=== PATIENT | male | born 1995 | race African-American/Black ===

== ENCOUNTER 2016-05-12 22:51 | Emergency (ER) | payer OTHER ==
--- NOTE | 2016-05-12 23:41 | EDDOCDS ---
Physician Documentation [facility] Name: Javier Kimbrough Age: 21 yrs Sex: Male : 1995 Arrival Date: 05/12/2016 Time: 22:51 Bed Triage 2 Private MD: Fela Wang [facility] Disposition: 05/12/16 23:33 Discharged to Home/Self Care. Impression: Pain in left shoulder. - Condition is Stable. - Discharge Instructions: Shoulder Pain, [id number]. - Medication Reconciliation, Local Pharmacy Hours form. - Follow up: Fela Wang [facility]; When: Tomorrow; Reason: Further diagnostic work-up, Recheck today's complaints, Continuance of care. - Problem is new. - Symptoms are unchanged. Historical: - Allergies: no known allergies; - Home Meds: 1. none - PMHx: none; - PSHx: none; - Social history: Smoking status: Patient states was never smoker of tobacco. Patient/guardian denies using alcohol, street drugs, No barriers to communication noted, The patient speaks fluent Nigerien, Speaks appropriately for age. - Family history: Not pertinent. - : The pt / caregiver states he / she is not on anticoagulants. Home medication list is obtained from the patient. - Exposure Risk Screening:: None identified. Vital Signs: 05/12 22:52 BP 136 / 65 RA Sitting (auto/lg); Pulse 84; Resp 16; Temp 97.5(O); Pulse Ox 98% on R/A; rs6 Weight 81.65 kg / 180.01 lbs (R); Height 6 ft. 0 in. (182.88 cm) (R); Pain 9/10; 22:52 Body Mass Index 24.41 (81.65 kg, 182.88 cm) rs6 MDM: 23:23 Shoulder, Complete Ordered. EDMS 23:29 Sling ordered. btw Signatures: Dispatcher [employer] EDMonster Reyna PA PA btw Dulce RizzoRN RN Rosanna Lucero RN RN ttb MTDD
--- NOTE | 2016-05-12 23:41 | EDDOCDS ---
Nurse's Notes [facility] Name: Javier Kimbrough Age: 21 yrs Sex: Male : 1995 Arrival Date: 05/12/2016 Time: 22:51 Bed Triage 2 Private MD: Fela Wang [facility] Diagnosis: Pain in left shoulder Presentation: 05/12 23:01 Presenting complaint: Patient states: left shoulder injury while playing basketball ttb approx 1 hr ago. Another player landed on shoulder while jumping... Left neck painful as well. pt able to move hand, denies numbness/tingling to hand. Not able to pick arm up. NAD noted in triage. Adult Sepsis Screening: The patient does not have new or worsening altered mentation. Patient's respiratory rate is less than 22. Systolic blood pressure is greater than 100. Patient has a qSOFA score of 0- Negative Sepsis Screen. Suicide/Homicide risk assessment- the patient denies having any suicidal and/or homicidal ideations and does not present with any other emotional, behavioral or mental health complaints. Status: The patient is an active duty refrigeration service technician. Transition of care: patient was not received from another setting of care. 23:01 Acuity: BIJAN Level 4 ttb 23:01 Method Of Arrival: Walkin/Carried/Asstd ttb Triage Assessment: 23:03 General: Appears in no apparent distress, well nourished, well groomed, Behavior is ttb appropriate for age, cooperative, pleasant. Pain: Location: left shoulder 9/10 Pain currently is 9 out of 10 on a pain scale. HIV screening NA for this visit Offered previously. Neurological: Level of Consciousness is awake, alert. Cardiovascular: Chest pain is denied. Respiratory: No deficits noted. Airway is patent Respiratory effort is even, unlabored, Denies cough, shortness of breath. Derm: Skin is normal. Musculoskeletal: Range of motion limited in left shoulder. Injury Description: player landed on shoulder while jumping... Historical: - Allergies: no known allergies; - Home Meds: 1. none - PMHx: none; - PSHx: none; - Social history: Smoking status: Patient states was never smoker of tobacco. Patient/guardian denies using alcohol, street drugs, No barriers to communication noted, The patient speaks fluent Upper Sorbian, Speaks appropriately for age. - Family history: Not pertinent. - : The pt / caregiver states he / she is not on anticoagulants. Home medication list is obtained from the patient. - Exposure Risk Screening:: None identified. Screenin:37 Screening information is obtained from the patient. Fall risk: No risks identified. cjh Assistance ADL's: requires no assistance with activities of daily living. Abuse/DV Screen: The patient / caregiver reports he/she is: not in a situation that causes fear, pain or injury. Nutritional screening: No deficits noted. Advance Directives: There is no active DNR order. home support is adequate. Assessment: 23:37 General: Appears in no apparent distress, comfortable, Behavior is appropriate for age, cjh cooperative. Respiratory: Airway is patent Respiratory effort is even, unlabored, Respiratory pattern is regular, symmetrical. Derm: Skin is pink, warm & dry. Vital Signs: 22:52 BP 136 / 65 RA Sitting (auto/lg); Pulse 84; Resp 16; Temp 97.5(O); Pulse Ox 98% on R/A; rs6 Weight 81.65 kg (R); Height 6 ft. 0 in. (182.88 cm) (R); Pain 9/10; 22:52 Body Mass Index 24.41 (81.65 kg, 182.88 cm) rs6 Vitals: 22:52 Log In Time: May 12, 2016 at 22:52. rs6 ED Course: 22:51 Patient visited by Brandi Schwartz PCA. rs6 22:51 Patient moved to Waiting rs6 22:52 [facility] Private Physician. rs6 22:53 Patient moved to Pre RCE rs6 23:03 Triage Initiated ttb 23:29 Monster Hull PA is PHCP. btw 23:29 Dena Iniguez MD is Attending Physician. btw 23:29 Patient moved to Triage 2 jennifer 23:30 Patient visited by Monster Hull PA. btw 23:32 [facility] is Referral Physician. btw 23:37 The patient / caregiver is instructed regarding the plan of care and ED course. cjh 23:37 No IV's were initiated during this patient's visit. No procedures done that require [facility] assistance. Order Results: There are currently no results for this order. Outcome: 23:33 Discharge ordered by Provider. btw 23:37 Discharge Assessment: Patient awake, alert and oriented x 3. No cognitive and/or [facility] functional deficits noted. Patient verbalized understanding of disposition instructions. patient administered narcotics - no. The following High Risk Discharge criteria are identified: None. Discharged to home ambulatory. Condition: good Condition: stable Condition: improved. Discharge instructions given to patient, Instructed on discharge instructions, follow up and referral plans. Demonstrated understanding of instructions, medications, Pt was receptive of discharge instructions/ teaching. No special radiology studies were completed. Property :Personal belongings accompany Pt. 23:40 Patient left the ED. [facility] Signatures: Monster Hull PA PA btw Sapna Reveles, MANAGING COGNITIVE ENGINEER MANAGING COGNITIVE ENGINEER Dulce BlackwoodRN RN [facility] Rosanna Ren RN RN ttb Brandi Schwartz, MANAGING COGNITIVE ENGINEER MANAGING COGNITIVE ENGINEER rs6 Corrections: (The following items were deleted from the chart) 23:05 23:01 Presenting complaint: Patient states: left shoulder injury while playing ttb basketball approx 1 hr ago. Left neck painful as well. pt able to move hand, denies numbness/tingling to hand. Not able to pick arm up. NAD noted in triage. ttb MTDD
[2016-05-13] MEDS ORDERED: METAL LOCK LOOP XX ONE ×2 (02:10→06:18)
--- NOTE | 2016-05-13 08:19 | REP ---
Clinical: Trauma . Technique: Internal rotation, external rotation, and Y view left shoulder . Findings: No acute fracture or dislocation. The acromioclavicular and glenohumeral joints are intact. No periarticular calcifications or degenerative changes are appreciated. Sub acromial space is normal. Surrounding soft tissues are unremarkable. Impression: Normal left shoulder radiographs. No acute fracture or dislocation. Signed by Case Guerrero MD 05/13/2016 08:10 A
--- NOTE | 2016-05-15 00:41 | EDDOCDS ---
Physician Documentation [facility] Name: Javier Kimbrough Age: 21 yrs Sex: Male : 1995 Arrival Date: 05/12/2016 Time: 22:51 Bed Triage 2 Private MD: Fela Wang [facility] Disposition: 05/12/16 23:33 Discharged to Home/Self Care. Impression: Pain in left shoulder. - Condition is Stable. - Discharge Instructions: Shoulder Pain, [id number]. - Medication Reconciliation, Local Pharmacy Hours form. - Follow up: Fela Wang [facility]; When: Tomorrow; Reason: Further diagnostic work-up, Recheck today's complaints, Continuance of care. - Problem is new. - Symptoms are unchanged. Historical: - Allergies: no known allergies; - Home Meds: 1. none - PMHx: none; - PSHx: none; - Social history: Smoking status: Patient states was never smoker of tobacco. Patient/guardian denies using alcohol, street drugs, No barriers to communication noted, The patient speaks fluent Bruneian, Speaks appropriately for age. - Family history: Not pertinent. - : The pt / caregiver states he / she is not on anticoagulants. Home medication list is obtained from the patient. - Exposure Risk Screening:: None identified. Vital Signs: 05/12 22:52 BP 136 / 65 RA Sitting (auto/lg); Pulse 84; Resp 16; Temp 97.5(O); Pulse Ox 98% on R/A; rs6 Weight 81.65 kg / 180.01 lbs (R); Height 6 ft. 0 in. (182.88 cm) (R); Pain 9/10; 22:52 Body Mass Index 24.41 (81.65 kg, 182.88 cm) rs6 MDM: 23:23 Shoulder, Complete Ordered. EDMS 23:29 Sling ordered. btw 23:44 [facility] Payment Agreement was scanned into [employer] and attached to record. hs2 05/13 09:01 T-Sheet-- Draft Copy was scanned into [employer] and attached to record. gb Signatures: Dispatcher [employer] EDMS Rossana Guerrero, Reg Reg gb Monster Hull, AMAYA PA btw Dulce Rizzo RN Rosanna Estrada RN RN ttb Stanton, Hillary, Reg Reg hs2 The chart was reviewed and I authenticate all verbal orders and agree with the evaluation and treatment provided.Attachments: 05/12 23:44 [facility] Payment Agreement hs2 05/13 09:01 T-Sheet-- Draft Copy gb Chart Complete MTDD
--- NOTE | 2016-05-15 00:41 | EDDOCDS ---
Physician Documentation [facility] Name: Javier Kimbrough Age: 21 yrs Sex: Male : 1995 Arrival Date: 05/12/2016 Time: 22:51 Bed Triage 2 Private MD: Fela Wang [facility] Disposition: 05/12/16 23:33 Discharged to Home/Self Care. Impression: Pain in left shoulder. - Condition is Stable. - Discharge Instructions: Shoulder Pain, [id number]. - Medication Reconciliation, Local Pharmacy Hours form. - Follow up: Fela Wang [facility]; When: Tomorrow; Reason: Further diagnostic work-up, Recheck today's complaints, Continuance of care. - Problem is new. - Symptoms are unchanged. Historical: - Allergies: no known allergies; - Home Meds: 1. none - PMHx: none; - PSHx: none; - Social history: Smoking status: Patient states was never smoker of tobacco. Patient/guardian denies using alcohol, street drugs, No barriers to communication noted, The patient speaks fluent Sammarinese, Speaks appropriately for age. - Family history: Not pertinent. - : The pt / caregiver states he / she is not on anticoagulants. Home medication list is obtained from the patient. - Exposure Risk Screening:: None identified. Vital Signs: 05/12 22:52 BP 136 / 65 RA Sitting (auto/lg); Pulse 84; Resp 16; Temp 97.5(O); Pulse Ox 98% on R/A; rs6 Weight 81.65 kg / 180.01 lbs (R); Height 6 ft. 0 in. (182.88 cm) (R); Pain 9/10; 22:52 Body Mass Index 24.41 (81.65 kg, 182.88 cm) rs6 MDM: 23:23 Shoulder, Complete Ordered. EDMS 23:29 Sling ordered. btw 23:44 [facility] Payment Agreement was scanned into [employer] and attached to record. hs2 05/13 09:01 T-Sheet-- Draft Copy was scanned into [employer] and attached to record. gb Signatures: Dispatcher [employer] EDMS Rossana Guerrero, Reg Reg gb Monster Hull, AMAYA PA btw Dulce Rizzo RN Rosanna Estrada RN RN ttb Stanton, Hillary, Reg Reg hs2 The chart was reviewed and I authenticate all verbal orders and agree with the evaluation and treatment provided.Attachments: 05/12 23:44 [facility] Payment Agreement hs2 05/13 09:01 T-Sheet-- Draft Copy gb Chart Complete MTDD
--- NOTE | 2016-05-15 00:41 | EDDOCDS ---
Nurse's Notes [facility] Name: Javier Kimbrough Age: 21 yrs Sex: Male : 1995 Arrival Date: 05/12/2016 Time: 22:51 Bed Triage 2 Private MD: Fela Wang [facility] Diagnosis: Pain in left shoulder Presentation: 05/12 23:01 Presenting complaint: Patient states: left shoulder injury while playing basketball ttb approx 1 hr ago. Another player landed on shoulder while jumping... Left neck painful as well. pt able to move hand, denies numbness/tingling to hand. Not able to pick arm up. NAD noted in triage. Adult Sepsis Screening: The patient does not have new or worsening altered mentation. Patient's respiratory rate is less than 22. Systolic blood pressure is greater than 100. Patient has a qSOFA score of 0- Negative Sepsis Screen. Suicide/Homicide risk assessment- the patient denies having any suicidal and/or homicidal ideations and does not present with any other emotional, behavioral or mental health complaints. 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 Transition of care: patient was not received from another setting of care. 23:01 Acuity: BIJAN Level 4 ttb 23:01 Method Of Arrival: Walkin/Carried/Asstd ttb Triage Assessment: 23:03 General: Appears in no apparent distress, well nourished, well groomed, Behavior is ttb appropriate for age, cooperative, pleasant. Pain: Location: left shoulder 9/10 Pain currently is 9 out of 10 on a pain scale. HIV screening NA for this visit Offered previously. Neurological: Level of Consciousness is awake, alert. Cardiovascular: Chest pain is denied. Respiratory: No deficits noted. Airway is patent Respiratory effort is even, unlabored, Denies cough, shortness of breath. Derm: Skin is normal. Musculoskeletal: Range of motion limited in left shoulder. Injury Description: player landed on shoulder while jumping... Historical: - Allergies: no known allergies; - Home Meds: 1. none - PMHx: none; - PSHx: none; - Social history: Smoking status: Patient states was never smoker of tobacco. Patient/guardian denies using alcohol, street drugs, No barriers to communication noted, The patient speaks fluent Occitan, Speaks appropriately for age. - Family history: Not pertinent. - : The pt / caregiver states he / she is not on anticoagulants. Home medication list is obtained from the patient. - Exposure Risk Screening:: None identified. Screenin:37 Screening information is obtained from the patient. Fall risk: No risks identified. cjh Assistance ADL's: requires no assistance with activities of daily living. Abuse/DV Screen: The patient / caregiver reports he/she is: not in a situation that causes fear, pain or injury. Nutritional screening: No deficits noted. Advance Directives: There is no active DNR order. home support is adequate. Assessment: 23:37 General: Appears in no apparent distress, comfortable, Behavior is appropriate for age, cjh cooperative. Respiratory: Airway is patent Respiratory effort is even, unlabored, Respiratory pattern is regular, symmetrical. Derm: Skin is pink, warm & dry. Vital Signs: 22:52 BP 136 / 65 RA Sitting (auto/lg); Pulse 84; Resp 16; Temp 97.5(O); Pulse Ox 98% on R/A; rs6 Weight 81.65 kg (R); Height 6 ft. 0 in. (182.88 cm) (R); Pain 9/10; 22:52 Body Mass Index 24.41 (81.65 kg, 182.88 cm) rs6 Vitals: 22:52 Log In Time: May 12, 2016 at 22:52. rs6 ED Course: 22:51 Patient visited by Brandi Schwartz PCA. rs6 22:51 Patient moved to Waiting rs6 22:52 [facility] is Private Physician. rs6 22:53 Patient moved to Pre RCE rs6 23:03 Triage Initiated ttb 23:29 Monster Hull PA is PHCP. btw 23:29 Dena Iniguez MD is Attending Physician. btw 23:29 Patient moved to Triage 2 jennifer 23:30 Patient visited by Monster Hull PA. btw 23:32 [facility] is Referral Physician. btw 23:37 The patient / caregiver is instructed regarding the plan of care and ED course. cjh 23:37 No IV's were initiated during this patient's visit. No procedures done that require [facility] assistance. 23:41 Patient name changed from Javier\Yaima\\S\Chaimger\S\ to Javier\S\Carla\S\Luis E. EDMS 23:44 [facility] Payment Agreement was scanned into [employer] and attached to record. hs2 05/13 08:33 Shoulder, Complete Returned. EDMS 09:01 T-Sheet-- Draft Copy was scanned into [employer] and attached to record. gb Order Results: Radiology Order: Shoulder, Complete Test: Shoulder, Complete REASON FOR EXAMINATION: Trauma; Clinical: Trauma .; ; Technique: Internal rotation, external rotation, and Y view left shoulder .; ; Findings:; No acute fracture or dislocation. The acromioclavicular and glenohumeral joints; are intact. No periarticular calcifications or degenerative changes are; appreciated. Sub acromial space is normal. Surrounding soft tissues are; unremarkable.; ; Impression:; Normal left shoulder radiographs. No acute fracture or dislocation.; ; ; Signed by; Case Guerrero MD 05/13/2016 08:10 A; Outcome: 05/12 23:33 Discharge ordered by Provider. btw 23:37 Discharge Assessment: Patient awake, alert and oriented x 3. No cognitive and/or [facility] functional deficits noted. Patient verbalized understanding of disposition instructions. patient administered narcotics - no. The following High Risk Discharge criteria are identified: None. Discharged to home ambulatory. Condition: good Condition: stable Condition: improved. Discharge instructions given to patient, Instructed on discharge instructions, follow up and referral plans. Demonstrated understanding of instructions, medications, Pt was receptive of discharge instructions/ teaching. No special radiology studies were completed. Property :Personal belongings accompany Pt. 23:40 Patient left the ED. [facility] Signatures: Dispatcher [employer] EDNE Rossana Guerrero, Reg Reg gb Monster Hull PA PA btw Sapna Reveles, CORRUGATED FASTENER DRIVER CORRUGATED FASTENER DRIVER jennifer Dulce Rizzo RN RN [facility] Rosanna Ren RN RN ttBrandi Julien, CORRUGATED FASTENER DRIVER CORRUGATED FASTENER DRIVER rs6 Keisha Gottlieb, Reg Reg hs2 Corrections: (The following items were deleted from the chart) 23:05 23:01 Presenting complaint: Patient states: left shoulder injury while playing ttb basketball approx 1 hr ago. Left neck painful as well. pt able to move hand, denies numbness/tingling to hand. Not able to pick arm up. NAD noted in triage. ttb Chart Complete MTDD
== END 2016-05-12 23:40 | disposition home or self-care (01) ==
LOC: M ED 22:51
DX: M25.512 Pain in left shoulder (principal)

== ENCOUNTER 2016-08-08 18:41 | Emergency (ER) | payer OTHER ==
[~2016-08-08] VITALS: Ht 182.9 cm; Wt 83.9 kg
[2016-08-08 18:42] VITALS: BP 130/60
== END 2016-08-08 23:04 | disposition left against medical advice (07) ==
LOC: M ED 19:37
DX: M79.89 Other specified soft tissue disorders (principal); H57.10 Ocular pain, unspecified eye; Z53.21 Procedure and treatment not carried out due to patient leaving prior to being seen by health care provider

== ENCOUNTER 2016-08-19 17:33 | Emergency (ER) | payer OTHER ==
[~2016-08-19] VITALS: Ht 182.9 cm; Wt 83.9 kg
[2016-08-19 19:09] VITALS: BP 127/56
== END 2016-08-19 19:10 | disposition home or self-care (01) ==
LOC: M ED 18:26
DX: Z47.89 Encounter for other orthopedic aftercare (principal); M79.644 Pain in right finger(s)